=== PATIENT | female | born 1985 | race Caucasian/White ===

== ENCOUNTER 2018-10-11 08:52 | Observation (INO) | payer BC ==
[~2018-10-11] VITALS: Ht 152.4 cm; Wt 87.5 kg
[2018-10-11 10:04] LABS: HEMOGLOBIN A1C 5.4 % (4.5-6.2)
[2018-10-11 11:08] VITALS: BP 116/66
== END 2018-10-11 11:00 | disposition home or self-care (01) ==
LOC: 4S 08:52
PROVIDERS: ADMIT Obstetrics & Gynecology; ATTEND Obstetrics & Gynecology
DX: O24.410 Gestational diabetes mellitus in pregnancy, diet controlled (principal); Z3A.37 37 weeks gestation of pregnancy
CPT/HCPCS: 36415; 76805; 81002; 82947; 83036; G0378

== ENCOUNTER 2018-10-16 10:10 | Observation (INO) | payer BC ==
[~2018-10-16] VITALS: Ht 152.4 cm; Wt 88.9 kg
[2018-10-16 11:02] VITALS: BP 114/63
== END 2018-10-16 11:40 | disposition home or self-care (01) ==
LOC: 4S 10:10
PROVIDERS: ADMIT Obstetrics & Gynecology; ATTEND Obstetrics & Gynecology
DX: O24.419 Gestational diabetes mellitus in pregnancy, unspecified control (principal); Z3A.37 37 weeks gestation of pregnancy

== ENCOUNTER 2018-10-21 11:55 | Observation (INO) | payer BC ==
[~2018-10-21] VITALS: Ht 150 cm; Wt 86.2 kg
[2018-10-21 12:59] LABS: GLUCOMETER DEV NAME(LOC) 4S.; GLUCOSE,POINT OF CARE 109 MG/DL (70-110)
[2018-10-21 13:23] VITALS: BP 117/62
[2018-10-21] MEDS ORDERED: PREN1TAB80 PO (13:27)
== END 2018-10-21 13:00 | disposition home or self-care (01) ==
LOC: 4S 11:55 → UNDODISOB 11:55
PROVIDERS: ADMIT Obstetrics & Gynecology; ATTEND Obstetrics & Gynecology
DX: O24.410 Gestational diabetes mellitus in pregnancy, diet controlled (principal); O99.213 Obesity complicating pregnancy, third trimester; Z3A.38 38 weeks gestation of pregnancy
CPT/HCPCS: 82962; G0378

== ENCOUNTER 2018-10-24 10:25 | Inpatient (IN) | payer BC ==
[~2018-10-24] VITALS: Ht 152.4 cm; Wt 88.0 kg
[~2018-10-24 10:25] MED LIST: PREN1TAB80 PO
[2018-10-24] MEDS ORDERED: RINGERS SOLUTION,LACTATED 1,000 ML IV ONE (10:35)
[2018-10-24] MEDS ORDERED: CITRIC ACID/SODIUM CITRATE 30 ML SOLUTION UDCUP PO ONE (10:45)
[2018-10-24] MEDS ORDERED: METOCLOPRAMIDE HCL 5 MG/ML 2 ML VIAL IVP ONE (10:45)
[2018-10-24 11:42] LABS: BASOPHILS % (AUTO) 0.3 % (0.0-2.0); HEMATOCRIT 35.2 % (36-46); HEMOGLOBIN 11.8 g/dL (12.0-16.0); LYMPHOCYTES # (AUTO) 1.9 K/uL (1.0-4.8); LYMPHOCYTES % (AUTO) 32.7 % (22.0-44.0); MEAN CORPUSCULAR HEMOGLOBIN 28.5 pg (26.0-34.0); MEAN CORPUSCULAR HGB CONC 33.6 G/dL (31.0-37.0); MEAN CORPUSCULAR VOLUME 85 fL (80-100); MONOCYTES # (AUTO) 0.3 K/uL (0.1-1.0); MONOCYTES % (AUTO) 5.3 % (2.0-9.0); NEUTROPHILS # (AUTO) 3.5 K/uL (1.8-7.7); NEUTROPHILS % (AUTO) 60.7 % (40.0-70.0); PLATELET COUNT (AUTO) 195 K/uL (150-450); RED BLOOD CELL COUNT(AUTO) 4.16 MIL/uL (4.00-5.20); RED CELL DISTRIBUTION WIDTH 15.5 % (11.5-14.5)
[2018-10-24] MEDS ORDERED: GUM MASTIC/STORAX/MSAL/ALCOHOL LIQUID 0.67 ML VIAL TP ONE (12:41)
[2018-10-24] MEDS ORDERED: NALOXONE HCL 0.4 MG/ML VIAL IVP PRN (13:30)
[2018-10-24] MEDS ORDERED: DiphenhydrAMINE HCL 50 MG/ML VIAL IVP PRN ×2 (13:30)
[2018-10-24] MEDS ORDERED: FentaNYL CITRATE-PF 100 MCG/2 ML VIAL IVP PRN (13:30)
[2018-10-24] MEDS ORDERED: NALBUPHINE HCL 10 MG/ML VIAL IVP PRN ×3 (13:30)
[2018-10-24] MEDS ORDERED: DEXAMETHASONE SOD PHOS 4 MG/ML VIAL IVP PRN (13:30)
[2018-10-24] MEDS ORDERED: MORPHINE SULFATE 10 MG/ML SYRINGE IVP PRN (13:30)
[2018-10-24] MEDS ORDERED: ONDANSETRON HCL 4 MG/2 ML VIAL IVP PRN ×2 (13:30)
[2018-10-24] MEDS ORDERED: OXYTOCIN 30 UNITS/LACT RINGERS 500 ML IV ONE (15:25)
[2018-10-24] MEDS ORDERED: OxyCODONE HCL/ACETAMINOPHEN 5-325 MG TABLET PO PRN ×2 (15:30)
[2018-10-24] MEDS ORDERED: LANOLIN 7 GM OINTMENT TP PRN (15:30)
[2018-10-24] MEDS ORDERED: OXYGEN THERAPY IH SCH ×3 (20:00)
[2018-10-24] MEDS: RINGERS SOLUTION,LACTATED 1,000 ML IV SCH (20:21)
[2018-10-24] MEDS: ACETAMINOPHEN 1000 MG/ISO-OSM 100 ML IV SCH (21:38)
[2018-10-24] MEDS: MAGNESIUM HYDROXIDE SUSPENSION 30 ML UDCUP PO SCH (21:47)
[2018-10-25] MEDS: RINGERS SOLUTION,LACTATED 1,000 ML IV SCH (02:56)
[2018-10-25] MEDS: ACETAMINOPHEN 1000 MG/ISO-OSM 100 ML IV SCH (04:35)
[2018-10-25 05:42] LABS: BASOPHILS % (AUTO) 0.2 % (0.0-2.0); EOSINOPHILS % (AUTO) 0.3 % (1.0-6.0); HEMATOCRIT 30.3 % (36-46); HEMOGLOBIN 10.5 g/dL (12.0-16.0); LYMPHOCYTES # (AUTO) 1.9 K/uL (1.0-4.8); LYMPHOCYTES % (AUTO) 21.7 % (22.0-44.0); MEAN CORPUSCULAR HEMOGLOBIN 29.2 pg (26.0-34.0); MEAN CORPUSCULAR HGB CONC 34.6 G/dL (31.0-37.0); MEAN CORPUSCULAR VOLUME 85 fL (80-100); MONOCYTES # (AUTO) 0.5 K/uL (0.1-1.0); MONOCYTES % (AUTO) 5.6 % (2.0-9.0); NEUTROPHILS # (AUTO) 6.3 K/uL (1.8-7.7); NEUTROPHILS % (AUTO) 72.2 % (40.0-70.0); PLATELET COUNT (AUTO)-OB 158 K/uL (150-450); RED BLOOD CELL COUNT(AUTO) 3.58 MIL/uL (4.00-5.20); RED CELL DISTRIBUTION WIDTH 15.6 % (11.5-14.5)
[2018-10-25] MEDS ORDERED: EPHEDrine SULFATE 50 MG/ML VIAL IM ONE (05:51)
[2018-10-25] MEDS ORDERED: 0.9% SODIUM CHLORIDE 10 ML VIAL IVP ONE (05:51)
[2018-10-25] MEDS ORDERED: OXYTOCIN 10 UNITS/ML VIAL IM ONE (05:51)
[2018-10-25] MEDS: MAGNESIUM HYDROXIDE SUSPENSION 30 ML UDCUP PO SCH (09:00)
[2018-10-25] MEDS: IBUPROFEN 800 MG TABLET PO PRN ×2 (14:03→21:03)
[2018-10-26] MEDS: IBUPROFEN 800 MG TABLET PO PRN (07:56)
[2018-10-26] MEDS: MAGNESIUM HYDROXIDE SUSPENSION 30 ML UDCUP PO SCH (07:59)
[2018-10-26] MEDS ORDERED: PERCT PO (10:16)
[2018-10-26] MEDS ORDERED: IBUP-2071 PO (10:16)
[2018-10-26] MEDS ORDERED: DSS100 PO (10:17)
[2018-10-26] MEDS ORDERED: FERR-89 PO (10:18)
== END 2018-10-26 12:35 | disposition home or self-care (01) | DRG 788 ==
LOC: 4S 10:25 → OBSVTOIN 10:25 → 4S 15:36
PROVIDERS: ADMIT Obstetrics & Gynecology; ATTEND Obstetrics & Gynecology
PROC: 10D00Z1 Extraction of Products of Conception, Low, Open Approach (ICD-10-PCS; principal; 2018-10-24)
PROC: 3E02340 Introduction of Influenza Vaccine into Muscle, Percutaneous Approach (ICD-10-PCS; 2018-10-26)
DX: O24.429 Gestational diabetes mellitus in childbirth, unspecified control (principal); O34.211 Maternal care for low transverse scar from previous cesarean delivery; Z3A.39 39 weeks gestation of pregnancy; Z37.0 Single live birth; Z23 Encounter for immunization
CPT/HCPCS: 86850; 86900; 86901; 87081; 90686; J0131; J0690; J2590; J2765; J3490; J7120